=== PATIENT | male | born 1990 | race Caucasian/White ===

== ENCOUNTER 2018-05-24 11:05 | Emergency (ER) | payer SELFPAY ==
[~2018-05-24] VITALS: Ht 180.3 cm; Wt 90.7 kg
[2018-05-24] MEDS ORDERED: HYCET 7.5 MG-3473 ML (11:19)
== END 2018-05-24 13:20 | disposition home or self-care (01) ==
LOC: ED 11:05
DX: G43.909 Migraine, unspecified, not intractable, without status migrainosus (principal)
CPT/HCPCS: 70450; 96361; 96374; 96375; 99284; J1200; J1885; J2405; J2765; J7120

== ENCOUNTER 2018-10-18 07:05 | Observation (INO) | payer OTHER ==
[~2018-10-18] VITALS: Ht 180.3 cm; Wt 99.8 kg
[~2018-10-18 07:05] MED LIST: HYCET 7.5 MG-3473 ML; VENTOLIN HFA18 GM INH
--- NOTE | 2018-10-18 13:49 | NUR ---
10/18/18 1349 Tangela Culp 1322 PT ARRIVES WTIH NASAL AND ORAL AIRWAYS IN MOUTH WITH 10L O2 PER MASK. PT IS DIAPHORETIC, LR INFUSING. PT AROUSEABLE BUT BACK TO SLEEP. CMS INTACT TO LEFT LEG, DRESSING TO LEFT HIP. 1330 PT MOVED TO ROOM AIR AT THIS TIME AND MAINTAINING SATS WHILE AWAKE. ICE PACKS PLACED TO LEFT ANKLE AND LEFT HIP. 1334 PT PLACED BACK ON 2L O2 PER NC FOR SATS DOWN TO 90% WHILE SLEEPING. PT IS AROUSEABLE AND ANSWERS YES OR NO QUESTIONS. C/O NAUSEA, DENIES PAIN. 1337 PT MEDICATED WITH ZOFRAN 4 MG IV FOR NAUSEA. PT AWAKE ON AND OFF, NC IN PLACE. LR INFUSING. CMS INTACT TO LEFT LEG. SPINAL LEVEL CHECKED WITH ICE AND NOTED AT T8. PT HAS LIMITED MOVEMENT IN BLE. CMS INTACT. 1345 PT REPORTS NAUSEA IMPROVED.
--- NOTE | 2018-10-18 14:15 | NUR ---
PT ARRIVED FROM PACU. REPORT RECEIVED FROM JOURNEYMAN LINEMAN. PT AWAKE AND ALERT, DENIES PAIN AND NAUSEA. PT TOELRATING SIPS OF WATER AND PUDDING/CRACKERS. PT ARRIVED ON 2L NC. PT WEANED TO ROOM AIR. O2 SATURATIONS ABOVE 92%, PT PLACED ON CONTINIOUS PULSE OX. SCD IN PLACE TO RLE. ASSESSMENT DONE. SPINAL LEVEL L2 WITH PT ABLE TO PRESSURE AND SCRATCH BUT NOT COLD. DRESSINGS ARE CLEAN DRY AND INTACT AT THIS TIME. PT DIAPHORETIC AND SLIGHT TREMMORS NOTED. PT REPORTS FAMILY HX OF DIABETES BUT "I'VE NEVER BEEN TESTED." CBG TAKEN = 92. ADDITIONAL CRACKERS AND PUDDING PROVIDED. PT ORIENTED TO ROOM. NO ADDITIONAL REQUESTS OR COMPLAINTS AT THIS TIME. BED RAILS UP. LLE ELEVATED. CALL LIGHT WITHIN REACH. PT DEMONSTRATES CORRECT USE OF CALL LIGHT.
--- NOTE | 2018-10-18 15:15 | NUR ---
VITALS AND ASSESSMENT DUE. PT AWAKE AND TALKING ON PHONE. PT DENIES PAIN AND NAUSEA AND REQUESTS "MORE FOOD." ICE CREAM AND PUDDING PROVIDED. MENU BROUGHT TO PT FOR ORDERING. ASSESSMENT DONE. SPINAL RESOLVED. DIAPHORESIS CONTINUES BUT TREMBELING IS NO LONGER NOTICED. CMS INTACT. DRESSINGS C/D/I AT THIS TIME. PT CONTINUES WATCHING TV. NO ADDITIONAL REQUESTS OR COMPLAINTS AT THIS TIME. BED RAILS UP. CALL LIGHT WITHIN REACH.
--- NOTE | 2018-10-18 16:15 | NUR ---
ASSESSMENT AND VITALS DUE. THIS RN TO BEDSIDE. PT TALKING ON PHONE. PT DENIES PAIN AND NAUSEA. PT ASSISTED WITH ORDERING DINNER. PT FOUND WITH INHALER IN HANDS AND STATES "I JUST USED IT." WHEEZES NOTED IN BILATERAL UPPER LOBES OF LUNGS. MD NOTIFED. ORDERS FOR PRN INHALDER USE AND INCENTIVE SPRIOMETER PLACED. PT UPDATED. INHALER SENT TO PHARMACY. ASSESSMENT DONE. CMS INTACT. DRESSINGS C/D/I AT THIS TIME. O2 SATURATION AT 95% ON ROOM AIR. BED RAILS UP. CALL LIGHT WITHIN REACH. NO ADDITIONAL REQUESTS OR COMPLAINTS AT THIS TIME.
--- NOTE | 2018-10-18 16:15 | NUR ---
PT PLANS TO RETURN HOME UPON DC, HAS A GOOD SUPPORT SYSTEM. STATES HE ALREADY HAS CRUTCHES.
--- NOTE | 2018-10-18 17:24 | NUR ---
VITALS AND ASSESSMENT DUE. THIS RN TO BEDSIDE. PT ENCORUAGED TO VOID. PT STATES "ILL TRY IN A MINUTE." PT DENIES PAIN AND NASUEA. PLUSE OX READING ABOVE 92% ON ROOM AIR. PT REPORTS ITCHING (SEE MAR FOR MEDICATION GIVEN). ASSESSMENT DONE. CMS INTACT, DRESSINGS CDI AT THIS TIME. VITALS TAKEN. BED RAILS UP. CALL LIGHT WITHIN REACH. NO ADDITIONAL REQUESTS OR COMPLAINTS AT THIS TIME.
--- NOTE | 2018-10-18 18:07 | NUR ---
PT HAS YET TO VOID. BLADDER SCAN DONE = 298. PT ENCOUARGED TO TRY TO VOID. PT ABLE TO VOID 100ML. PT ASSISTED WITH PUTTING ON BOXERS. ICE REFILLED TO ICE PACKS. BED RAILS UP. CALL LIGHT WITHIN REACH.
--- NOTE | 2018-10-18 18:42 | NUR ---
PT POST OP DAY 0 FOR LEFT HIP AND FOOT BONE GRAFT. DRESSINGS C/D/I THIS SHIFT. CMS INTACT. SPINAL RESOLVED. PT HAS VOIDED 100ML AND IS TOLERATING REGULAR DIET. NO NAUSEA THIS SHIFT. PAIN MEDICATION GIVEN X1 FOR 2/10 PAIN (SEE MAR). NON WEIGHT BEARING ON LEFT LEG, CRUCHES AT BEDSIDE. PRN INHALER FOR ASTHMA, PT GAVE TO SELF TODAY X1. WHEEZES NOTED IN BILATERAL UPPER LOBES. IS AT BEDSIDE. PT USES CALL LIGHT APPROPRIATLY.
--- NOTE | 2018-10-18 19:15 | NUR ---
SHIFT REPORT RECEIVED. PATIENT RESTING IN BED. REPORTS PAIN WELL CONTROLLED. STATES HE HAS SOME ITCHING AND REQUEST PRN BENADRYL. WILL RETURN WITH MEDS.
--- NOTE | 2018-10-18 19:20 | NUR ---
CHARGE NURSE REPORT RECEIVED. PT IN BED, WATCHING TV.
--- NOTE | 2018-10-18 19:40 | NUR ---
PATIENT APPEARS TO BE SLEEPING. DID NOT WAKE WHEN RN ENTERED ROOM WITH REQUESTED MEDS. RR 18. ALLOWED PATIENT TO REST. WILL RETURN.
--- NOTE | 2018-10-18 21:50 | NUR ---
PRN BENADRYL GIVEN FOR ONGOING ITCHING. PATIENT REPORTS PAIN IN LEFT ANKLE. ICE PACKS IN PLACE. LIMB ELEAVTED. PRN PAIN MEDS GIVEN. PATIENT ON PULSE OX, O2 SAT 96%. IV FLUIDS PER ORDER, SITE WNL. CMS IN LEFT EXTREMITIES WNL. DRESSING ON LEFT ANKLE CDI. LEFT HIP HAS MINIMAL PAIN, ICE PACKS HERE WELL. DRESSING CDI.
--- NOTE | 2018-10-18 23:00 | NUR ---
PATIENT REPORTS PAIN THAT CONTINUES TO WAKE HIM UP AND ITCHING UNRELIEVED BY BENADRYL. NUBAIN PROVIDED FOR ITCHING AND PRN TORADOL FOR THE PAIN. PATIENT DENIED TOILETING NEEDS. O2 SAT WNL. IV FLUIDS PER ORDER, SITE WNL. PATIENT REPOSITIONED FOR COMFORT. CALL LIGHT IN REACH.
--- NOTE | 2018-10-19 00:46 | NUR ---
V/S AND I&O DONE AND CHARTED. ICE PACK MADE AND REFILLED ICE WATER.
--- NOTE | 2018-10-19 01:00 | NUR ---
PATIENT APPEARS TO BE SLEEPING SOUNDLY. RR 18. O2 SAT 97%. CALL LIGHT IN REACH.
--- NOTE | 2018-10-19 05:25 | NUR ---
PRN TORADOL PROVIDED FOR PAIN 03/22. DRESSINGS CDI. CMS INTACT. PATIENT DENIES FURTHER NEEDS. CALL LIGHT IN REACH.
--- NOTE | 2018-10-19 06:24 | NUR ---
PATIENT RESTED WELL THROUGHT THE SHIFT. PAIN WELL CONTROLLED. DRESSING ON LEFT HIP AND FOOT CDI. VS STABLE. TOLERATING REGULAR DIET. PATIENT HAS NOT BEEN OUT OF BED THIS SHIFT.
--- NOTE | 2018-10-19 07:48 | NUR ---
PATIENT SITTING UP IN BED, RESTING WITH EYES CLOSED. CALL LIGHT IN REACH. AM CARE SET UP ON BEDSIDE TABLE FOR PATIENT. NO OTHER NEEDS AT THIS TIME.
--- NOTE | 2018-10-19 08:26 | NUR ---
Medications reconciled
--- NOTE | 2018-10-19 08:55 | NUR ---
MORNING ASSESSMENT DONE. PATIENT GIVEN O.5MG OF IV DILAUDID FOR 8/10 LEFT LEG/HIP PAIN. PATIENT STOOD AT BEDSIDE WITH NO WEIGHT ON LEFT FOOT AND TOLERATED ACTIVITY WELL. NO NAUSEA, PATIENT ATE 100% OF BREAKFAST. SPINAL 24 HOURS TO BE UP AFTER 10AM.
--- NOTE | 2018-10-19 09:14 | NUR ---
PATIENT SITTING UP IN BED, CALL LIGHT IN REACH. PATIENT PROVIDED WITH FRESH ICE WATER AND ICE PACK. PATIENT WASHED HANDS AND FACE WITH WARM WASH CLOTH AND PERFORMED ORAL CARE. NO OTHER NEEDS AT THIS TIME.
--- NOTE | 2018-10-19 10:11 | NUR ---
DR. MANSFIELD IN TO SEE PATIENT. PATIENT WILL BE ABLE TO GO HOME TODAY. PLAN TO GIVE ORAL PAIN MEDICATION AT 11AM.
[2018-10-19] MEDS ORDERED: NORCO 10-325 T1 EACH PO (10:23)
--- NOTE | 2018-10-19 10:23 | OR ---
[facility] [address], [place] [address] Signed DATE OF OPERATION: 10/18/2018 SURGEON: Nyla Mansfield MD PREOPERATIVE DIAGNOSIS: Malunion of navicular/talar head fracture, left. POSTOPERATIVE DIAGNOSIS: Malunion of navicular/talar head fracture, left. PROCEDURE: Calcaneocuboid and talonavicular fusion with autogenous iliac crest bone graft. ANESTHESIA: General with sedation. SPECIMENS AND COMPLICATIONS: There were no specimens or complications. TOURNIQUET TIME: About an hour, then about 15 minutes down, and 40 minutes up. WHAT WAS DONE: The patient was taken to the operating room. After anesthesia was induced and the patient sedated, the right iliac crest and the right leg were prepped and draped in routine sterile fashion. Using a slightly curvilinear incision over the palpable iliac crest, skin was divided sharply. Dissection was deepened with electrocautery and self-retaining retractors were placed. The edge of the iliac crest was palpated and gently exposed. We then stripped off the inner table and the outer table and harvested about a 4 x 4 cm tricortical graft. We treated the edges of the resection with bone wax, copiously irrigated the wound and closed in a standard fashion. The graft was then taken to the back table where it was morselized except leaving one tricortical fragment, should we need it for mechanical support. The leg was then exsanguinated with an Esmarch bandage. A pneumatic tourniquet was inflated. Began medially with a dorsal medial incision. Skin was divided sharply between the anterior tib and the EHL. Skin was divided sharply. Subcutaneous tissue was bluntly spread. We then exposed the talonavicular joint. We used an osteotome to remove some of the larger marginal osteophytes. We then able to open the talonavicular joint and distracted. We used a series of curettes, rongeurs, and flexible chisel to Electronically Signed By: NYLA MANSFIELD MD 10/19/18 1023 PATIENT NAME: MARINA DAMIAN OPERATIVE REPORT DATE OF : 89 REPORT #: [id number] PHYSICIAN: NYLA MANSFIELD MD PCP: ANA SERVIN MD REPORT IS CONFIDENTIAL AND NOT TO BE RELEASED WITHOUT AUTHORIZATION [facility] [address] [place] [id number] Signed remove the remaining articular surface off the head of the talus and the base of the navicula. We then continued the dissection laterally until we were able to identify the calcaneocuboid joint. We then made a 2nd incision laterally over the calcaneocuboid joint. The skin was divided sharply. Subcutaneous tissue was bluntly spread. The extensor digitorum brevis was retracted anteriorly. The calcaneocuboid joint was opened and all the articular surface was removed again with a curettes, rongeurs, and small flexible chisels. At this point, we appeared to be able to execute an excellent reduction. Having reviewed the CT scan again, it seemed as if we might be able to preserve the subtalar joint. We therefore held the foot in a corrected position and fixed the calcaneocuboid joint with two 4.5 lag screws. We then returned medially. The bone graft had been previously morselized, was packed in and about the talonavicular joint, which was then similarly fixed with two 4.5 mm screws. We appeared to have a solid construct in good alignment and position. We then morselized the rest of the bone graft and packed it around the medial defect where the medial 3rd of the talar head was missing and then against the base of the navicula. The wounds were gently irrigated and closed in standard fashion. Sterile dressings applied. He was placed in a bulky dressing and a posterior splint. He was awakened and taken to the recovery room where he arrived in stable condition. Counts were correct and antibiotic protocols were followed. Nyla Mansfield MD WFB/MODL /[id number] Copies: ~ Electronically Signed By: NYLA MANSFIELD MD 10/19/18 1023 PATIENT NAME: MARINA DAMIAN OPERATIVE REPORT DATE OF : [birth year] REPORT #: [id number] PHYSICIAN: NYLA MANSFIELD MD PCP: ANA SERVIN MD REPORT IS CONFIDENTIAL AND NOT TO BE RELEASED WITHOUT AUTHORIZATION
--- NOTE | 2018-10-19 11:04 | NUR ---
PATIENT DRESSED, GIVEN PO PAIN PILL, VITALS ARE STABLE, SALINE LOCK REMOVED.
--- NOTE | 2018-10-19 11:24 | NUR ---
PATIENT GIVEN WHEELCHAIR RIDE TO FRONT DOOR, HIS BROTHER IS TRANSPORTING HIM HOME.
== END 2018-10-19 11:30 | disposition home or self-care (01) ==
LOC: OPS 07:05 → DS 07:05 → OPS 09:15 → DS 09:15 → OPS 14:00 → MS 14:00
PROVIDERS: ADMIT Orthopaedic Surgery
PROC: 0QB20ZZ Excision of Right Pelvic Bone, Open Approach (ICD-10-PCS; 2018-10-18)
PROC: 3E0T3BZ Introduction of Anesthetic Agent into Peripheral Nerves and Plexi, Percutaneous Approach (ICD-10-PCS; 2018-10-18)
PROC: 0SGJ07Z Fusion of Left Tarsal Joint with Autologous Tissue Substitute, Open Approach (ICD-10-PCS; principal; 2018-10-18 09:15)
PROC: 0SGJ07Z Fusion of Left Tarsal Joint with Autologous Tissue Substitute, Open Approach (ICD-10-PCS; 2018-10-18 09:15)
PROC: 0SGJ07Z Fusion of Left Tarsal Joint with Autologous Tissue Substitute, Open Approach (ICD-10-PCS; 2018-10-18 09:15)
DX: S92.252K Displaced fracture of navicular [scaphoid] of left foot, subsequent encounter for fracture with nonunion (principal); S92.122 Displaced fracture of body of left talus; G89.18 Other acute postprocedural pain; J45.909 Unspecified asthma, uncomplicated; E66.9 Obesity, unspecified; Z79.899 Other long term (current) drug therapy; Z68.30 Body mass index [BMI] 30.0-30.9, adult
CPT/HCPCS: 01480; 64445; 64447; 73620; 76000; 76942; 94762; 96361; 96372; 96374; 96375; 96376; C1713; C1769; G0378; J0690; J0735; J1100; J1170; J1885; J2250; J2274; J2300; J2405; J2704; J2765; J3010; J3590; J7120

== ENCOUNTER 2020-07-23 14:56 | Emergency (ER) | payer OTHER ==
[~2020-07-23] VITALS: Ht 180.3 cm; Wt 104.0 kg
[~2020-07-23 14:56] MED LIST changes: +ADVIL200 MG PO; +NORCO 10-325 T1 EACH PO; +ULTRAM50 MG PO
--- OUTSIDE RECORDS SUMMARY | 2020-07-23 15:00 | XMS ---
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 Zaida has no Care Guidelines for this patient. Care History Social 05/26/2018 [facility] IF PATIENT RETURNS TO EMERGENCY DEPARTMENT --- PLEASE COLLECT CURRENT CONTACT INFORMATION AND REPORT IT TO CASE MANAGEMENT / [facility] E.D. [facility] MO.) [facility] NOTE: Visits indicate total known visits. ED/UCC VISIT TRACKING (12 MO.) 07/23/2020 14:[address] [facility] [place] TYPE: Emergency COMPLAINT: - BLOOD IN STOOL INPATIENT VISIT TRACKING (12 MO.) No inpatient visits to display in this time frame [email or web address]
== END 2020-07-23 15:54 | disposition home or self-care (01) ==
LOC: ED 14:56
DX: K62.5 Hemorrhage of anus and rectum (principal); I10 Essential (primary) hypertension
CPT/HCPCS: 99283